=== PATIENT | female | born 1995 | race Caucasian/White ===

== ENCOUNTER 2021-12-12 10:02 | Outpatient (CLI) | payer OTHER, SELFPAY ==
[2021-12-12 11:04] LABS: Thyroid Stimulating Hormone 1.28 uIU/mL (0.36-3.74)
[2021-12-14 14:25] LABS: T4 Thyroxine 8.4 mcg/dL (5.9-10.3)
== END 2021-12-12 10:03 | disposition home or self-care (01) ==
PROVIDERS: PCP Family Medicine; Visit Provider Obstetrics & Gynecology
DX: R63.5 Abnormal weight gain (principal)
CPT/HCPCS: 36415; 84436; 84443